=== PATIENT | female | born 1985 | race Caucasian/White ===

== ENCOUNTER 2022-11-05 16:26 | Emergency (ER) | payer OTHER, SELFPAY ==
[2022-11-05 16:28] VITALS: BP 137/103; PULSE 81; RESP 18; O2SAT 100; BMI 19.6
--- NOTE | 2022-11-05 16:40 | ED_ITS ---
HPI - Abdominal Pain General Chief Complaint: Abdominal Pain Stated Complaint: Abdominal pain Time Seen by Provider: 11/05/22 16:30 Source: patient and family Mode of arrival: wheelchair Limitations: no limitations History of Present Illness HPI narrative: Patient comes to the emergency room complaining of severe suprapubic and left lower quadrant pain that started approximately 2 hours ago. Patient states that she was in the swimming pool, patient states that she thought she was having abdominal cramps but then very sudden she had severe left-sided abdominal pain. Patient complaining of nausea, vomited x1, no diarrhea. Patient states she has had history of 1 ectopic and has 1 child at home. Unknown if she is at this time. Patient states that she had her menstrual period couple of days ago and it is unlikely that she is . Patient denies history of ovarian cyst. Related Data Previous Rx's Medication Instructions Recorded ketorolac 10 mg tablet 10 mg PO TID PRN pain #10 tabs 11/05/22 ondansetron HCl 4 mg tablet 4 mg PO Q6H PRN nausea and 11/05/22 vomiting #14 tabs tamsulosin 0.4 mg capsule 0.4 mg PO DAILY #10 caps 11/05/22 Allergies Allergy/AdvReac Type Severity Reaction Status Date / Time codeine Allergy Unknown Verified 11/05/22 16:28 hydromorphone [From Dilaudid] Allergy Unknown Verified 11/05/22 16:28 Review of Systems Review of Systems Constitutional : No Weight loss, No Fever, No Chills, No Night Sweats, No Fatigue, No Malaise ENT/Mouth : No Hearing loss, No Ear Pain, No Nasal Congestion, No Sinus Pain, No Hoarseness, No sore throat, No Rhinorrhea, No Swallowing Difficulty Eyes: No Eye Pain, No Swelling, No Redness, No Foreign Body, No Discharge, No Vision Changes Cardiovascular : No Chest Pain, No SOB, No Dyspnea on Exertion, No Orthopnea, No Edema, No Palpitations Respiratory : No Cough, No Sputum, No Wheezing, No Smoke Exposure, No Dyspnea Gastrointestinal : Complaining of nausea and vomiting, No Diarrhea, No Constipation, complaining of severe suprapubic and left lower quadrant pain Genitourinary : no irregular bleeding, No Dysuria, No Urinary Frequency, No Hematuria, No Urinary Incontinence, No Urgency, No Flank Pain, No Urinary Flow Changes, No Hesitancy Musculoskeletal : No joint pain, No Myalgias, No Joint Swelling Skin : No Skin Lesions, No rash Neuro : No Weakness, No Numbness, No Paresthesias, No Loss of Consciousness, No Dizziness, No Headache Psych : No Anxiety/Panic, No Depression, No SI/HI/AH/VH, No Social Issues, Heme/Lymph: No Bruising, No Bleeding,No Lymphadenopathy Endocrine : No Polyuria, No Polydipsia, No Temperature Intolerance [facility] Past Medical History Medical History (Updated 11/05/22 @ 19:43 by Zuleyma Gaines MD) Ectopic Social History Social History Alcohol intake: never Smoked in Last 30 Days: No Use of substances other than those prescribed or required for medical reasons: No Physical Exam ED Vital Signs: Vital Signs - 24 hr 11/05/22 16:28 11/05/22 16:46 11/05/22 16:47 Pulse Rate 81 65 Respiratory Rate 18 26 H 20 Blood Pressure 137/103 H 116/70 Pulse Oximetry 100 100 Oxygen Delivery Method Room Air Room Air 11/05/22 18:00 Pulse Rate 89 Respiratory Rate 14 Blood Pressure Pulse Oximetry 100 Oxygen Delivery Method Room Air BMI result Body Mass Index 19.6 Const Other: Appearance: Alert. Oriented X3. Severe pain Eyes: Pupils equal, round and reactive to light. ENT: Pharynx normal. Neck: Normal inspection. Neck supple. No lymph nodes noted. No crepitus CVS: Normal heart rate and rhythm. Pulses normal. Normal S1 and S2 Respiratory: No respiratory distress. Breath sounds normal. No Wheezing. No rales Abdomen: Soft, complaining of suprapubic pain, left lower quadrant and flank pain Skin: Skin warm and dry. Normal skin color. Normal skin turgor. Extremities: No lower extremity edema. No Lacerations. No Rash Neuro: Oriented X 3. No motor deficit. No sensory deficit. Moving all extremities. No slurred speech. CN 2 through 12 grossly intact Psych: calm, cooperative, normal affect Course Course Course Narrative: This is an RME: Additional HPI, ROS, PE not included below will be deferred to primary provider. 37 year old female hx of ectopic presents w/ sudden onset severe lower abd pain worse in LLQ started 40 mins [employer]. Patient w/ dififculty ambulating into the department. Pain started suddenly while at her boyfriends parents housoe. Reports initially it felt like a cramp then progressed to the worst pain of her life. A/C nausea X1 she states that her lower abd pain radiated to her back and shoulders. LMP a few days ago. On exam severe TTP to lower abd pain, w/ rebound patient pale looking and moving around due to pain, very uncomfortable appearing stating im going to pass out Spoke to charge, patient will go straight back to the dept. Labs, imaging, urine ordered. Dr. Gaines aware of patients case. Medical Decision Making Medical Decision Making [facility] Narrative: -patient came in severe pain, differential diagnosis ectopic , diverticulitis, perforation, kidney stone. Admission considered. -patient received a dose of morphine, fentanyl and ketorolac. -my interpretation of CT scan of the abdomen pelvis call a [id number] hydronephrosis on the left side, approximately 5 mm stone in the left UPJ -patient feeling much better Differential Diagnosis Differential Diagnoses: The differential diagnosis associated with the presentation includes (Ectopic , diverticulitis, colon perforation, kidney stone) Admission/Observation Consideration of admission/observation: Escalation of care including admission/observation considered Lab Data [facility] Lab Attestation statement: I reviewed the patient's lab results. 11/05/22 16:50 11/05/22 16:45 Labs: Lab Results 11/05/22 11/05/22 11/05/22 Range/Units 16:44 16:44 16:45 WBC (4.8-10.8) X10*3/uL RBC (4.20-5.50) X10*6/uL Hgb (12.0-16.0) g/dl Hct (37.0-47.0) % MCV (80.0-98.0) fL MCH (27.0-33.0) pg MCHC (31.0-35.0) g/dl RDW (11.0-16.0) % Plt Count (160-400) X10*3/uL MPV (9.4-12.3) fL Immature Gran % (Auto) (0.0-0.4) % Neut % (Auto) (45-73) % Lymph % (Auto) (20-40) % [place] % (Auto) (2-11) % Eos % (Auto) (0-4) % Baso % (Auto) (0-2) % Lymph # (Auto) (1.2-4.9) X10*3/uL [place] # (Auto) (0.1-1.2) X10*3/uL Eos # (Auto) (0.0-0.4) X10*3/uL Baso # (Auto) (0.0-0.2) X10*3/uL Abs Immat Gran (auto) (0.00-0.03) X10*3/uL Absolute Neuts (auto) (2.0-8.3) x10*3/uL Absolute Nucleated RBC (0.0-0.012) X10*3/uL Nucleated RBC % (auto) (0.0-0.2) /100WBC PT 12.8 (10.0-13.1) SEC INR 1.1 (0.9-1.1) Sodium 139 (135-145) mmol/L Potassium 3.5 (3.3-5.1) mmol/L Chloride 105 (96-108) mmol/L Carbon Dioxide 18 L (22-29) mmol/L Anion Gap 20 (12-20) BUN 14 (9-16) mg/dL Creatinine 0.81 (0.5-1.4) mg/dL Estim Creat Clear Calc 85.1 Estimated GFR > 60 Random Glucose 131 H (60-115) mg/dL Lactic Acid (0.5-2.0) mmol/L Calcium 9.9 (8.4-10.2) mg/dL Magnesium 2.0 (1.6-2.6) mg/dL Total Bilirubin 1.6 H (0.0-1.0) mg/dL AST 18 (5-31) U/L ALT 13 (0-31) U/L Alkaline Phosphatase 39 (39-117) U/L Total Protein 7.0 (6.5-8.0) g/dL Albumin 4.5 (3.5-5.0) g/dL Lipase 16 (8-78) U/L Beta HCG, Quant < 2 mIU/mL Urine Color Urine Appearance Urine pH (5.0-9.0) Ur Specific [place] (1.005-1.025) Urine Protein (Neg-Trace) mg/dL Urine Glucose (UA) (Negative) mg/dL Urine Ketones (Negative) mg/dL Urine Blood (Negative) Urine Nitrite (Negative) Ur Leukocyte Esterase (Negative) Urine RBC (0-2) /HPF Urine WBC (0-5) /HPF Ur Squamous Epith Cells (0-2) /HPF Urine Bacteria (None Seen) Hyaline Casts (0-2) /LPF Urine Opiates Screen (Not Detect) Urine Fentanyl Screen (Not Detect) Ur Barbiturates Screen (Not Detect) Ur Phencyclidine Scrn (Not Detect) Ur Amphetamines Screen (Not Detect) U Benzodiazepines Scrn (Not Detect) Urine Cocaine Screen (Not Detect) U Marijuana (THC) Screen (Not Detect) COVID-19 (YAEL) (Negative) COVID-19 Clin Com Blood Type Antibody Screen 11/05/22 11/05/22 11/05/22 Range/Units 16:45 16:45 16:50 WBC 8.4 (4.8-10.8) X10*3/uL RBC 4.17 L (4.20-5.50) X10*6/uL Hgb 13.6 (12.0-16.0) g/dl Hct 38.2 (37.0-47.0) % MCV 91.6 (80.0-98.0) fL MCH 32.6 (27.0-33.0) pg MCHC 35.6 H (31.0-35.0) g/dl RDW 12.8 (11.0-16.0) % Plt Count 284 (160-400) X10*3/uL MPV 9.6 (9.4-12.3) fL Immature Gran % (Auto) 0.4 (0.0-0.4) % Neut % (Auto) 73.3 H (45-73) % Lymph % (Auto) 19.6 L (20-40) % [place] % (Auto) 5.5 (2-11) % Eos % (Auto) 0.8 (0-4) % Baso % (Auto) 0.4 (0-2) % Lymph # (Auto) 1.7 (1.2-4.9) X10*3/uL [place] # (Auto) 0.5 (0.1-1.2) X10*3/uL Eos # (Auto) 0.1 (0.0-0.4) X10*3/uL Baso # (Auto) 0.0 (0.0-0.2) X10*3/uL Abs Immat Gran (auto) 0.03 (0.00-0.03) X10*3/uL Absolute Neuts (auto) 6.2 (2.0-8.3) x10*3/uL Absolute Nucleated RBC 0.000 (0.0-0.012) X10*3/uL Nucleated RBC % (auto) 0.0 (0.0-0.2) /100WBC PT (10.0-13.1) SEC INR (0.9-1.1) Sodium (135-145) mmol/L Potassium (3.3-5.1) mmol/L Chloride (96-108) mmol/L Carbon Dioxide (22-29) mmol/L Anion Gap (12-20) BUN (9-16) mg/dL Creatinine (0.5-1.4) mg/dL Estim Creat Clear Calc Estimated GFR Random Glucose (60-115) mg/dL Lactic Acid (0.5-2.0) mmol/L Calcium (8.4-10.2) mg/dL Magnesium (1.6-2.6) mg/dL Total Bilirubin (0.0-1.0) mg/dL AST (5-31) U/L ALT (0-31) U/L Alkaline Phosphatase (39-117) U/L Total Protein (6.5-8.0) g/dL Albumin (3.5-5.0) g/dL Lipase (8-78) U/L Beta HCG, Quant mIU/mL Urine Color Urine Appearance Urine pH (5.0-9.0) Ur Specific [place] (1.005-1.025) Urine Protein (Neg-Trace) mg/dL Urine Glucose (UA) (Negative) mg/dL Urine Ketones (Negative) mg/dL Urine Blood (Negative) Urine Nitrite (Negative) Ur Leukocyte Esterase (Negative) Urine RBC (0-2) /HPF Urine WBC (0-5) /HPF Ur Squamous Epith Cells (0-2) /HPF Urine Bacteria (None Seen) Hyaline Casts (0-2) /LPF Urine Opiates Screen (Not Detect) Urine Fentanyl Screen (Not Detect) Ur Barbiturates Screen (Not Detect) Ur Phencyclidine Scrn (Not Detect) Ur Amphetamines Screen (Not Detect) U Benzodiazepines Scrn (Not Detect) Urine Cocaine Screen (Not Detect) U Marijuana (THC) Screen (Not Detect) COVID-19 (YAEL) Negative (Negative) COVID-19 Clin Com See Note Blood Type A Negative Antibody Screen NEGATIVE 11/05/22 11/05/22 11/05/22 Range/Units 16:51 18:57 18:57 WBC (4.8-10.8) X10*3/uL RBC (4.20-5.50) X10*6/uL Hgb (12.0-16.0) g/dl Hct (37.0-47.0) % MCV (80.0-98.0) fL MCH (27.0-33.0) pg MCHC (31.0-35.0) g/dl RDW (11.0-16.0) % Plt Count (160-400) X10*3/uL MPV (9.4-12.3) fL Immature Gran % (Auto) (0.0-0.4) % Neut % (Auto) (45-73) % Lymph % (Auto) (20-40) % [place] % (Auto) (2-11) % Eos % (Auto) (0-4) % Baso % (Auto) (0-2) % Lymph # (Auto) (1.2-4.9) X10*3/uL [place] # (Auto) (0.1-1.2) X10*3/uL Eos # (Auto) (0.0-0.4) X10*3/uL Baso # (Auto) (0.0-0.2) X10*3/uL Abs Immat Gran (auto) (0.00-0.03) X10*3/uL Absolute Neuts (auto) (2.0-8.3) x10*3/uL Absolute Nucleated RBC (0.0-0.012) X10*3/uL Nucleated RBC % (auto) (0.0-0.2) /100WBC PT (10.0-13.1) SEC INR (0.9-1.1) Sodium (135-145) mmol/L Potassium (3.3-5.1) mmol/L Chloride (96-108) mmol/L Carbon Dioxide (22-29) mmol/L Anion Gap (12-20) BUN (9-16) mg/dL Creatinine (0.5-1.4) mg/dL Estim Creat Clear Calc Estimated GFR Random Glucose (60-115) mg/dL Lactic Acid 3.7 H* (0.5-2.0) mmol/L Calcium (8.4-10.2) mg/dL Magnesium (1.6-2.6) mg/dL Total Bilirubin (0.0-1.0) mg/dL AST (5-31) U/L ALT (0-31) U/L Alkaline Phosphatase (39-117) U/L Total Protein (6.5-8.0) g/dL Albumin (3.5-5.0) g/dL Lipase (8-78) U/L Beta HCG, Quant mIU/mL Urine Color Yellow Urine Appearance Clear Urine pH 6.0 (5.0-9.0) Ur Specific [place] >= 1.030 H (1.005-1.025) Urine Protein Negative (Neg-Trace) mg/dL Urine Glucose (UA) Negative (Negative) mg/dL Urine Ketones 80 (Negative) mg/dL Urine Blood Small (1+) H (Negative) Urine Nitrite Negative (Negative) Ur Leukocyte Esterase Negative (Negative) Urine RBC 11-20 H (0-2) /HPF Urine WBC 0-5 (0-5) /HPF Ur Squamous Epith Cells 0-2 (0-2) /HPF Urine Bacteria None Seen (None Seen) Hyaline Casts 0-2 (0-2) /LPF Urine Opiates Screen POSITIVE H (Not Detect) Urine Fentanyl Screen Not Detected (Not Detect) Ur Barbiturates Screen Not Detected (Not Detect) Ur Phencyclidine Scrn Not Detected (Not Detect) Ur Amphetamines Screen Not Detected (Not Detect) U Benzodiazepines Scrn Not Detected (Not Detect) Urine Cocaine Screen Not Detected (Not Detect) U Marijuana (THC) Screen Not Detected (Not Detect) COVID-19 (YAEL) (Negative) COVID-19 Clin Com Blood Type Antibody Screen Radiology Impression Discussion of test interpretation with radiology: I have reviewed the radiologist's reading. Radiologist Impression: FINDINGS: LUNG BASES: The visualized lung bases are unremarkable.? LIVER, GALLBLADDER, AND BILIARY TREE: The liver is normal in size, shape, and attenuation. No focal hepatic lesion or biliary ductal dilatation is present. The gallbladder is unremarkable with no evidence of radiopaque gallstones, gallbladder wall thickening, or obvious pericholecystic inflammatory changes.? PANCREAS: Unremarkable.? SPLEEN: Unremarkable.? ADRENAL GLANDS: Unremarkable.? KIDNEYS AND URETERS: Left kidney: There is moderate hydronephrosis of left kidney. Distention renal pelvis calyces and the left ureter to the ureterovesical junction. There is no stone present in the kidney or the ureter. There is mild enhancement of the uroepithelium of the collecting system of the left kidney. This raises question of infection. The parenchyma of the kidney has normal enhancement. No edema in the perinephric space of either kidney. Right kidney: Nonobstructive 5 mm stone at the lower pole. There is a 1 mm stone at the midpole and another in the upper pole. No ureteral calculus. No hydronephrosis 4 mm cortical cyst midpole right kidney. No follow-up imaging is recommended for simple renal cyst. BLADDER: Unremarkable.? GASTROINTESTINAL TRACT: The small and large bowel are unremarkable. The appendix is unremarkable.? ABDOMINAL WALL: No significant hernia is appreciated.? LYMPH NODES: Normal. VASCULAR: Unremarkable. PELVIC VISCERA: Uterus is anteverted. Dominant follicle right ovary measuring 2 cm. No follow-up imaging recommended.? OSSEOUS STRUCTURES: Unremarkable.? CT/CT abdomen pelvis w IV con IMPRESSION: Moderate hydronephrosis of left kidney. No left-sided stone. Mild enhancement of the uroepithelium of the collecting system of the left kidney raising question of infection. Correlate with urinalysis. ? Fleischner guidelines were followed. Medications Administered Discontinued Medications Generic Name Dose Route Start Last Admin Trade Name Freq PRN Reason Stop Dose Admin Fentanyl 50 mcg 11/05/22 16:56 11/05/22 17:03 Fentanyl Citrate/Pf 100 Mcg/2 Ml Vial IVPUSH 11/05/22 16:57 50 mcg ONCE ONE Administration Protocol Sodium Chloride 1,000 mls @ 999 mls/hr 11/05/22 16:56 11/05/22 18:05 Ns IVCONT 11/05/22 17:56 Infused .Q1H1M ONE Infusion Iohexol 100 ml 11/05/22 18:14 11/05/22 18:15 Iohexol 350 Mg/Ml 100 Ml Infus..Btl IV 11/05/22 18:15 85 ml ONCE ONE Administration Morphine Sulfate 4 mg 11/05/22 16:38 11/05/22 16:46 Morphine Sulfate 4 Mg/Ml Cartridge IVPUSH 11/05/22 16:39 4 mg ONCE ONE Administration Protocol Ondansetron HCl 4 mg 11/05/22 16:38 11/05/22 16:46 Ondansetron Hcl 4 Mg/2 Ml Vial IVPUSH 11/05/22 16:39 4 mg ONCE ONE Administration Critical Care Time Critical Care Time Critical Care Time: Yes Total Critical Care Time: 30 Attestation: I have personally provided critical care time. Time includes review of lab data, radiology results, discussion with consultants, and monitoring for potential decompensation. Intervention performed as documented. Discharge Plan Discharge Clinical Impression: Ureterolithiasis Patient Disposition: Home, Self-Care Instructions: Ureteral Stones (ED) Additional Instructions: Please follow-up with your primary care physician tomorrow. If you have any worsening or new symptoms, please return to the emergency room or call 911 Prescriptions: New tamsulosin 0.4 mg capsule 0.4 mg PO DAILY Qty: 10 0RF ketorolac 10 mg tablet 10 mg PO TID PRN (Reason: pain) Qty: 10 0RF Rx Instructions: Not use this medication with ibuprofen, Aleve, naproxen or any NSAIDs. Only Tylenol if needed ondansetron HCl 4 mg tablet 4 mg PO Q6H PRN (Reason: nausea and vomiting) Qty: 14 0RF
[2022-11-05 16:46] VITALS: RESP 26
[2022-11-05 16:47] VITALS: BP 116/70; PULSE 65; RESP 20; O2SAT 100
[2022-11-05 18:00] VITALS: PULSE 89; RESP 14; O2SAT 100
== END 2022-11-05 20:16 | disposition home or self-care (01) ==
PROVIDERS: Emergency Provider Emergency Medicine
DX: N20.1 Calculus of ureter (principal); R10.32 Left lower quadrant pain; R10.2 Pelvic and perineal pain; Z20.828 Contact with and (suspected) exposure to other viral communicable diseases; Z20.822 Contact with and (suspected) exposure to COVID-19; Z79.899 Other long term (current) drug therapy
CPT/HCPCS: 36415; 74177; 76830; 76856; 80053; 80307; 81001; 83605; 83690; 83735; 84702; 85025; 85610; 86850; 86900; 86901; 87635; 93975; 96361; 96374; 96375; 99284; 99285; J1885; J2270; J2405; J3010; Q9967

== ENCOUNTER 2022-11-25 09:25 | Outpatient (AMB) | payer OTHER, SELFPAY ==
--- NOTE | 2022-11-25 06:47 | A.OFFVIS_ITS ---
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 11/25/2022-- New patient evaluation. Kristen was seen in ER on 11/05/2022 for left flank pain and she had CAT scan of the abdomen/pelvis. She denies any family history of kidney stones. Results reviewed?CAT scan of the abdomen/pelvis ? moderate left hydronephrosis noted. No ureter stones noted on the left kidney.? Review of the CAT scan notes right renal stone, largest 5 mm in the lower pole and no left kidney stones. Currently, she is asymptomatic and she has likely passed a stone on the left side. She needs to do follow-up imaging to make sure that the hydronephrosis is resolved. Plan: Ordered ultrasound. Right ESWL discussed to be scheduled.? Risks and benefits of right ESWL procedure were discussed with the patient.? Patient education material for right ESWL procedure was provided.? Consent to perform right ESWL procedure was obtained. .? I have discussed treatment with? right ESWL, discussed risks including but not limited to, blood in the urine, bruising to the skin, bleeding, possible need for another procedure if a stone fragment obstructs the ureter while passing, possible need to repeat procedure if stone is not completely fragmented. [facility] Medical History Ectopic Surgical History History of surgery on arm Family History Father No known health problems Mother No known health problems Social History Alcohol intake: never Patient Tobacco Use Status: Never used Tobacco Review of Systems Const All systems reviewed & are unremarkable except as noted in HPI and below Reports no additional complaints Eyes Reports no additional complaints ENT Reports no additional complaints Card Denies dyspnea Resp Denies cough and Denies dyspnea GI Reports no additional complaints Reports no additional complaints Musc Reports no additional complaints Skin/Breast Denies rash and Denies unusual bruising Neuro Reports no additional complaints Psych Reports no additional complaints Endo Reports no additional complaints Deonte/Lymph Reports no additional complaints Aller/Immun Reports no additional complaints Physical Exam Const General: cooperative, healthy appearing and no acute distress Orientation/consciousness: patient oriented x3 HEENT Head: Yes normal to inspection, Yes normocephalic and Yes atraumatic Eyes Conjunctivae: conjunctivae normal Neck Neck: Yes normal visual inspection and Yes trachea midline Chest Chest palpation & inspection: normal inspection of the chest Resp Effort & Inspection: normal respiratory effort Cardio Rate: regular rate GI Inspection: Yes normal to inspection Skin General skin exam: no rashes or lesions noted Neuro General: patient oriented x3 Extrem General: No edema Psych Appearance: grossly normal Results AMB Urinalysis, Automated UA Leukoctes 0 Tomas/uL Last Edit by BURKE Bravo on 11/25/22 10:07 UA Nitrite Negative Last Edit by BURKE Bravo on 11/25/22 10:07 UA Urobilinogen 0.2 mg/dL Last Edit by BURKE Bravo on 11/25/22 10:0 7 UA Protein 15 mg/dL Last Edit by BURKE Bravo on 11/25/22 10:07 UA pH 6.0 Last Edit by BURKE Bravo on 11/25/22 10:07 UA Blood 0 Darnell/uL Last Edit by BURKE Bravo on 11/25/22 10:07 UA Specific [place] 1.025 Last Edit by BURKE Bravo on 11/25/22 10: 07 UA Ketone Positive Last Edit by BURKE Bravo on 11/25/22 10:07 2+ 40 mg/dL Blank Weber 11/25/22 10:07 UA Bilirubin 0 mg/dL Last Edit by BURKE Bravo on 11/25/22 10:07 UA Glucose 0 mg/dL Last Edit by BURKE Bravo on 11/25/22 10:07 Results Reviewed Results Reviewed: Laboratory Last Values Urine pH (Auto) 6.0 11/25/22 10:05 Specific [place] (Auto) 1.025 11/25/22 10:05 Urine Protein (Auto) 15 mg/dL 11/25/22 10:05 Glucose (UA)(Auto) 0 mg/dL 11/25/22 10:05 Urine Ketones (Auto) Positive 11/25/22 10:05 Urine Blood (Auto) 0 Darnell/uL 11/25/22 10:05 Urine Nitrite (Auto) Negative 11/25/22 10:05 Urine Bilirubin (Auto) 0 mg/dL 11/25/22 10:05 Urine Urobilinogen (Auto) 0.2 mg/dL 11/25/22 10:05 Leukocyte Esterase (Auto) 0 Tomas/uL 11/25/22 10:05 Date of Service: 11/05/22 EXAMINATION: CT ABDOMEN AND PELVIS WITH CONTRAST? CLINICAL INFORMATION: Severe lower abdominal pain? COMPARISON: Pelvic ultrasound 11/05/2022 FINDINGS: LUNG BASES: The visualized lung bases are unremarkable.? LIVER, GALLBLADDER, AND BILIARY TREE: The liver is normal in size, shape, and attenuation. No focal hepatic lesion or biliary ductal dilatation is present. The gallbladder is unremarkable with no evidence of radiopaque gallstones, gallbladder wall thickening, or obvious pericholecystic inflammatory changes.? PANCREAS: Unremarkable.? SPLEEN: Unremarkable.? ADRENAL GLANDS: Unremarkable.? KIDNEYS AND URETERS: Left kidney: There is moderate hydronephrosis of left kidney. Distention renal pelvis calyces and the left ureter to the ureterovesical junction. There is no stone present in the kidney or the ureter. There is mild enhancement of the uroepithelium of the collecting system of the left kidney. This raises question of infection. The parenchyma of the kidney has normal enhancement. No edema in the perinephric space of either kidney. Right kidney: Nonobstructive 5 mm stone at the lower pole. There is a 1 mm stone at the midpole and another in the upper pole. No ureteral calculus. No hydronephrosis 4 mm cortical cyst midpole right kidney. No follow-up imaging is recommended for simple renal cyst. BLADDER: Unremarkable.? GASTROINTESTINAL TRACT: The small and large bowel are unremarkable. The appendix is unremarkable.? ABDOMINAL WALL: No significant hernia is appreciated.? LYMPH NODES: Normal. VASCULAR: Unremarkable. PELVIC VISCERA: Uterus is anteverted. Dominant follicle right ovary measuring 2 cm. No follow-up imaging recommended.? OSSEOUS STRUCTURES: Unremarkable.? IMPRESSION: Moderate hydronephrosis of left kidney. No left-sided stone. Mild enhancement of the uroepithelium of the collecting system of the left kidney raising question of infection. Correlate with urinalysis. Assessment & Plan Assessment & Plan (1) Kidney stones: Code(s): N20.0 - Calculus of kidney (2) Hydronephrosis of left kidney: Code(s): N13.30 - Unspecified hydronephrosis Plan Ordered renal ultrasound. Right ESWL discussed to be scheduled.? Risks and benefits of right ESWL procedure were discussed with the patient.? Patient education material for right ESWL procedure was provided.? Consent to perform right ESWL procedure was obtained. .? I have discussed treatment with? right ESWL, discussed risks including but not limited to, blood in the urine, bruising to the skin, bleeding, possible need for another procedure if a stone fragment obstructs the ureter while passing, possible need to repeat procedure if stone is not completely fragmented.? Orders: Orders AMB Urinalysis Automated 11/25/22 Z13.9 - Encounter for screening, unspecified Patient Instructions: The patient had an opportunity to ask questions regarding treatment plan. All questions were answered. Imaging, Laboratory studies and physical exam results were discussed and reviewed in detail. No major barriers to understanding were identified. The patient expressed understanding and agreement with the above treatment plan.? ? ? The patient is aware they should contact our office by phone for worsening of their current condition or the appearance of new symptoms. Compliance is encouraged with any medications and followup testing that is ordered.? ? ? It is a privilege to be allowed the opportunity to participate in the urologic care of your patient. If you have any questions or concerns regarding treatment for the above conditions please do not hesitate to contact me. The office telephone contact is [phone].? ? ? This note is constructed in part using voice recognition software. 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 ? ? Yours sincerely,? ? ? Huang Lazar MD? ? Coding Level of Care Code New Pt Level 4 (45766) Diagnoses Kidney stones N20.0 Hydronephrosis of left kidney N13.30
== END 2022-11-25 10:29 | disposition home or self-care (01) ==
PROVIDERS: Visit Provider Urology
DX: N20.0 Calculus of kidney (principal); N13.30 Unspecified hydronephrosis
CPT/HCPCS: 99204

== ENCOUNTER → 2022-11-25 09:25 | Outpatient (BNVA) | payer OTHER, SELFPAY | PROVIDERS: Visit Provider Urology ==